=== PATIENT | male | born 1985 | race Hispanic/Latino ===

== ENCOUNTER 2017-10-15 16:22 | Emergency (ER) | payer SELFPAY | END 2017-10-15 18:49 | disposition home or self-care (01) | LOC: ERS 16:22 | DX: H60.93 Unspecified otitis externa, bilateral (principal); J30.9 Allergic rhinitis, unspecified | CPT/HCPCS: 99282 ==

== ENCOUNTER 2023-03-15 19:51 | Emergency (ER) | payer SELFPAY ==
[2023-03-15 21:06] LABS: SARS-CoV-2 NAA Rapid Test Not Detected (NotDetected)
== END 2023-03-15 21:20 | disposition home or self-care (01) ==
LOC: ERS 19:51
DX: J11.1 Influenza due to unidentified influenza virus with other respiratory manifestations (principal)
CPT/HCPCS: 87081; 87430; 99283